=== PATIENT | female | born 1985 | race Caucasian/White ===

== ENCOUNTER 2016-06-15 08:35 | Emergency (ER) | payer BC, OTHER ==
[~2016-06-15] VITALS: Ht 157.5 cm; Wt 65.0 kg
[2016-06-15 08:38] VITALS: BP 138/88; PULSE 103; RESP 15; TEMP 98.3; O2SAT 97
--- NOTE | 2016-06-15 09:33 | PD ---
HPI Chief Complaint: Cold / Flu Symptoms Time Seen by Provider: 09:23 Travel History International Travel<30 days: No Contact w/Intl Traveler<30days: No Traveled to known affect area: No History of Present Illness HPI She complains of runny nose and congestion and cough and sore throat. Symptoms have been going on for 2 days. Severity is mild. No fever PFSH Past Medical History Asthma: Yes (ASTHMATIC BRONCHITIS) Cardiovascular Problems: No Genitourinary: No Musculoskeletal: No Neurologic: No Reproductive: No Respiratory: Yes ?: Not Social History Alcohol Use: Yes Tobacco Use: Yes Substance Use: Yes Allergies-Medications (Allergen,Severity, Reaction): Coded Allergies: No Known Allergies (Verified , 06/15/16) Reported Meds & Prescriptions Reported Meds & Active Scripts Active No Active Prescriptions or Reported Medications Review of Systems HENT: Positive: Sore Throat, No: Lightheadedness Cardiovascular: No: Chest Pain or Discomfort Respiratory: Positive: Cough Physical Exam Narrative RESPIRATORY: Respiratory effort unlabored, no retractions or use of accessory muscles. Breath sounds are clear and symmetric. SKIN: Inspection shows no rash or ulcers. Palpation shows no induration or nodules. TMs and throat clear Data Data Last Documented VS Vital Signs Date Time Temp Pulse Resp B/P Pulse Ox O2 Delivery O2 Flow Rate FiO2 06/15/16 08:38 98.3 103 15 138/88 97 MDM Medical Decision Making Medical Screen Exam Complete: Yes Emergency Medical Condition: Yes Medical Record Reviewed: Yes Differential Diagnosis Bronchitis, URI, flu syndrome Narrative Course I have reviewed the patient's electronic medical record. Presentation most consistent with acute viral URI Supportive care discussed No indication for antibiotics Diagnosis Primary Impression: Viral upper respiratory tract infection Additional Instructions: The patient was advised to follow up with their physician and return if they worsen. Med/Other Pt SpecificInfo: Other Scripts No Active Prescriptions or Reported Meds Disposition: 01 DISCHARGE HOME Condition: Stable Humberto Marti MD Jun 15, 2016 09:33
== END 2016-06-15 09:55 | disposition home or self-care (01) ==
LOC: NEPB 08:35
DX: J06.9 Acute upper respiratory infection, unspecified (principal); B97.89 Other viral agents as the cause of diseases classified elsewhere; R05 Cough; Z72.0 Tobacco use; Z87.09 Personal history of other diseases of the respiratory system
CPT/HCPCS: 99283

== ENCOUNTER 2016-07-31 20:41 | Emergency (ER) | payer SELFPAY ==
[2016-07-31 20:48] VITALS: BP 124/65; PULSE 84; RESP 16; TEMP 98.2; O2SAT 98
[2016-07-31] MEDS ORDERED: ALBU6.7H INH (20:51)
[2016-07-31] MEDS ORDERED: PRED-503 PO (20:51)
[2016-07-31] MEDS ORDERED: predniSONE 20 MG TAB PO ONE (21:00)
[2016-07-31] MEDS ORDERED: RESP: ALBUTEROL 2.5 MG/IPRATROPIUM 0.5 MG NEB (SCH) INH ONE (21:00)
--- NOTE | 2016-07-31 21:00 | PD ---
HPI Chief Complaint: ENT Complaint Time Seen by Provider: 20:52 Travel History International Travel<30 days: No Contact w/Intl Traveler<30days: No Traveled to known affect area: No History of Present Illness HPI 30-year-old white female presents to emergency Department with complaints of shortness of breath or wheezing. She has a history of asthma and anxiety. She had sat the [facility] [employer] for alcohol detox. She admits to congestion, cough, pleuritic chest wall pain. She does continue to smoke. History of asthma and has not had her albuterol inhaler. No fever chills. No sputum production. No nausea vomiting. No abdominal pain or diarrhea. No ear symptoms. PFSH Past Medical History Narrative Medical aSTHMA, ALCOHOL ABUSE Asthma: Yes (ASTHMATIC BRONCHITIS) Cardiovascular Problems: No Genitourinary: No Musculoskeletal: No Neurologic: No Reproductive: No Respiratory: Yes Social History Alcohol Use: No (sober 3 months) Tobacco Use: Yes Substance Use: No (sober 3 months) Allergies-Medications (Allergen,Severity, Reaction): Coded Allergies: No Known Allergies (Verified , 07/31/16) Reported Meds & Prescriptions Reported Meds & Active Scripts Active No Active Prescriptions or Reported Medications Review of Systems Except as stated in HPI: all other systems reviewed are Neg Physical Exam Narrative GENERAL: Well-developed, well-nourished in no acute distress. Nontoxic appearing. HEAD: Normocephalic, atraumatic. EYES: Pupils equal round and reactive. Extraocular motions intact. No scleral icterus. No injection or drainage. ENT: TMs clear without erythema. The external auditory canals clear. Nose: clear . Posterior pharynx is pink and moist. No tonsillar edema or exudate. Uvula midline. Airway patent. NECK: Trachea midline.Supple, nontender, moves head freely. No central bony tenderness or spasm. CARDIOVASCULAR: Regular rate and rhythm without murmurs, gallops, or rubs. RESPIRATORY: Few x-ray wheeze. No Rales or rhonchi. GASTROINTESTINAL: Abdomen soft, non-tender, nondistended. No hepato-splenomegaly , or palpable masses. No guarding. EXTREMITIES: No clubbing, cyanosis, or edema. No joint tenderness, effusion, or edema noted. BACK: Nontender without deformity or crepitance. No flank tenderness. Data Data Last Documented VS Vital Signs Date Time Temp Pulse Resp B/P Pulse Ox O2 Delivery O2 Flow Rate FiO2 07/31/16 20:48 98.2 84 16 124/65 98 Orders Prednisone (Deltasone) (07/31/16 21:00) Duoneb X 1 Single Dose (07/31/16 21:00) [facility] Medical Decision Making Medical Screen Exam Complete: Yes Emergency Medical Condition: Yes Medical Record Reviewed: Yes Differential Diagnosis Differential diagnoses: Asthma exacerbation, URI, bronchitis Narrative Course Patient's given 80 mg of prednisone by mouth and 1 DuoNeb. Patient's lungs are clear. She stable for discharge. This is acute exacerbation of asthma Diagnosis Primary Impression: Acute asthma exacerbation Qualified Code: J45.21 - Mild intermittent asthma with acute exacerbation Patient Instructions: General Instructions Additional Instructions: Rest. Increase fluids. Stop smoking. prednisone, and albuterol. Followup with your Dr. in one week. Return to the ER for any problems. Med/Other Pt SpecificInfo: Prescription(s) given Scripts Albuterol 6.7 GM Inh (Proventil Hfa 6.7 GM Inh)90 Mcg/Act Aer2 Puff INH Q4-6H PRN (SHORTNESS OF BREATH) #1 INHALER Prov:Glenn Garcia MD 07/31/16 Prednisone (Deltasone)20 Mg Tab20 Mg PO TID #15 TAB Prov:Glenn Garcia MD 07/31/16 Disposition: 01 DISCHARGE HOME Condition: Stable Kem Shaikh Jul 31, 2016 21:00
== END 2016-07-31 21:29 | disposition home or self-care (01) ==
LOC: NEPB 20:41
DX: J45.21 Mild intermittent asthma with (acute) exacerbation (principal); F17.210 Nicotine dependence, cigarettes, uncomplicated
CPT/HCPCS: 94664; 99283; J7512

== ENCOUNTER 2016-11-13 17:47 | Inpatient (IN) | payer OTHER ==
[~2016-11-13] VITALS: Ht 157.5 cm; Wt 60.0 kg
[~2016-11-13 17:47] MED LIST: ALBU6.7H INH; PRED-503 PO
[2016-11-13 17:49] VITALS: BP 134/73; PULSE 118; RESP 20; TEMP 100.4; O2SAT 93
--- NOTE | 2016-11-13 17:54 | PD ---
Physical Exam Date Seen by Provider: Nov 13, 2016 Time Seen by Provider: 17:51 Data Data Last Documented VS Vital Signs Date Time Temp Pulse Resp B/P Pulse Ox O2 Delivery O2 Flow Rate FiO2 11/13/16 17:49 100.4 118 20 134/73 93 Room Air MDM Supervised Visit with JESSE: No Narrative Course 31 YO F with complaint of CP since yesterday morning, fevers since last night. Pain described as under the left breast, right shoulder and middle of the back. +SOB. + NV Vitals reviewed. Patient seen in triage, awaiting priority bed placement. Dotty De Nov 13, 2016 17:54
[2016-11-13] MEDS ORDERED: SODIUM CHLOR 0.9% 1000 ML INJ 800 ML IV ONE (18:16)
[2016-11-13] MEDS ORDERED: SODIUM CHLOR 0.9% 1000 ML INJ 1,000 ML IV ONE (18:16)
[2016-11-13] MEDS ORDERED: VANCOMYCIN INJ 900 MG in SODIUM CHLOR 0.9% 250 ML INJ 250 ML IV ONE (18:30)
--- NOTE | 2016-11-13 18:42 | RADRPT ---
EXAM DATE/TIME: 11/13/2016 18:30 [facility] COMPARISON: No previous studies available for comparison. INDICATIONS : Chest pain. MEDICAL HISTORY : None. SURGICAL HISTORY : None. ENCOUNTER: Initial ACUITY: 1 day PAIN SCORE: 0/10 LOCATION: Bilateral chest FINDINGS: There is consolidation at the left base silhouette the left heart border and the left hemidiaphragm. The right lung is clear. CONCLUSION: Left lower lobe consolidation. Some degree of effusion cannot be excluded. Raj Carrasco MD on November 13, 2016 at 18:39 Board Certified Radiologist. This report was verified electronically.
--- NOTE | 2016-11-13 18:50 | PD ---
HPI Chief Complaint: Chest Pain Time Seen by Provider: 18:06 Travel History International Travel<30 days: No Contact w/Intl Traveler<30days: No Traveled to known affect area: No History of Present Illness HPI This is a 31-year-old female who has a history of IV drug use who presents to the emergency department with 2 days of severe chest discomfort in the center of her chest, worse when she lays flat, constant, severe today associated with shortness of breath. She also has pain in her upper back. She's had a fever to 104 yesterday. She says she hasn't used IV drugs in one month but today she used IV Dilaudid because she thought that she might be and withdrawals. When that didn't work she came to the emergency department. [facility] Past Medical History Asthma: Yes (ASTHMATIC BRONCHITIS) Cardiovascular Problems: No Genitourinary: No Musculoskeletal: No Neurologic: No Reproductive: No Respiratory: Yes ?: Not LMP: OCTOBER 2016 Social History Alcohol Use: No (sober 3 months) Tobacco Use: Yes (ppd) Substance Use: No (sober 3 months) Allergies-Medications (Allergen,Severity, Reaction): Coded Allergies: No Known Allergies (Verified , 11/13/16) Reported Meds & Prescriptions Reported Meds & Active Scripts Active Proventil Hfa 6.7 GM Inh (Albuterol Sulfate) 90 Mcg/Act Aer 2 Puff INH Q4-6H PRN Review of Systems Except as stated in HPI: all other systems reviewed are Neg Physical Exam Narrative GENERAL: Ill-appearing SKIN: Track garcia along the bilateral upper extremities and left neck. HEAD: Atraumatic. Normocephalic. EYES: Pupils equal and round. No injection or drainage. ENT: Dry mucous membranes. NECK: Trachea midline. CARDIOVASCULAR: Tachycardic, 2/6 systolic murmur. RESPIRATORY: Tachypneic, clear to auscultation bilaterally. GASTROINTESTINAL: Abdomen soft, non-tender, nondistended. MUSCULOSKELETAL: No obvious deformities. NEUROLOGICAL: Awake and alert. No obvious cranial nerve deficits. Moving all extremities. PSYCHIATRIC: Appropriate mood and affect; insight and judgment normal. Data Data Last Documented VS Vital Signs Date Time Temp Pulse Resp B/P Pulse Ox O2 Delivery O2 Flow Rate FiO2 11/13/16 17:49 100.4 118 20 134/73 93 Room Air Orders Electrocardiogram (11/13/16 ) Complete Blood Count With Diff (11/13/16 18:16) Comprehensive Metabolic Panel (11/13/16 18:16) Lactic Acid Sepsis Protocol (11/13/16 18:16) Urinalysis - C+S If Indicated (11/13/16 18:16) Blood Culture (11/13/16 18:16) Chest, Single Ap (11/13/16 18:16) Blood Glucose (11/13/16 18:16) Ecg Monitoring (11/13/16 18:16) Iv Access Insert/Monitor (11/13/16 18:16) Oximetry (11/13/16 18:16) Oxygen Administration (11/13/16 18:16) Sodium Chlor 0.9% 1000 Ml Inj (Ns 1000 M (11/13/16 18:16) Sodium Chlor 0.9% 1000 Ml Inj (Ns 1000 M (11/13/16 18:16) Ed Urine Pregnancytest Poc (11/13/16 18:16) Vancomycin Inj (Vancomycin Inj) (11/13/16 18:30) Vascular Access Team Consult/P PRN (11/13/16 18:43) Vascular Poc Ultrasound (11/13/16 ) MDM Medical Decision Making Medical Screen Exam Complete: Yes Emergency Medical Condition: Yes Interpretation(s) Temperature is 100.4, tachycardic, somewhat hypoxic Differential Diagnosis Endocarditis, pneumonia, discitis, osteomyelitis, epidural abscess Narrative Course This is a 31-year-old female who was a history of IV drug use who presents to the emergency department with fever, cough and chest pain. She was placed on a monitor and an IV was established. Cultures will be obtained. Labs will be obtained and patient was started on IV vancomycin. I suspect the patient has endocarditis. She does have an infiltrate on her chest x-ray. I'm also concerned about possible discitis or epidural abscess that she has pain in the upper back. Patient will require admission, IV antibiotics and likely MRI as an inpatient. Bee Fermin MD Nov 13, 2016 18:50
[2016-11-13] MEDS ORDERED: CEFEPIME INJ 2,000 MG in SODIUM CHLORIDE 0.9% INJ 100 ML IV ONE (19:00)
[2016-11-13 19:41] LABS: BLOOD, URINE NEG (NEG); GLUCOSE,URINE NEG (NEG); KETONE, URINE NEG (NEG); MUCUS URINE FEW /lpf (OCC); NITRITE,URINE NEG (NEG); PH, URINE 7.5 (5.0-8.5); SQUAMOUS EPITHELIAL CELL URINE 10 /hpf (0-5); URINE COLOR YELLOW (YELLW/STRAW)
[2016-11-13 19:42] LABS: COMMENT (UR) CATH-CULT NOT IND; CULTURE IF INDICATED CATH CULTURE NOT IND
[2016-11-13 19:44] LABS: AUTOMATED NEUTROPHIL # 11.4 TH/MM3 (1.8-7.7); BASOPHIL % 0.1 % (0.0-2.0); EOSINOPHIL % 0.1 % (0.0-4.0); HEMATOCRIT 34.6 % (35.0-46.0); HEMO FLAGS DIFF FINAL; LYMPHOCYTE # 1.7 TH/MM3 (1.0-4.8); MEAN CELL VOLUME 81.7 FL (80.0-100.0); MEAN CORPUSCULAR HEMOGLOBIN 27.5 PG (27.0-34.0); MEAN CORPUSCULAR HGB CONC 33.7 % (32.0-36.0); MONO % 6.8 % (0.0-8.0); PLATELET COUNT 221 TH/MM3 (150-450); RED BLOOD COUNT 4.24 MIL/MM3 (4.00-5.30)
[2016-11-13 19:59] LABS: ANION GAP 9 MEQ/L (5-15); AST (GOT) 53 U/L (15-37); BICARBONATE 26.2 MEQ/L (21.0-32.0); BLOOD UREA NITROGEN 12 MG/DL (7-18); CHLORIDE 96 MEQ/L (98-107); GLOMERULAR FILTRATION RATE 101 ML/MIN (>89); SODIUM (NA) 131 MEQ/L (136-145)
[2016-11-13 20:00] LABS: ALT (GPT) 52 U/L (10-53)
[2016-11-13 20:02] LABS: ALKALINE PHOSPHATASE 114 U/L (45-117); TOTAL BILIRUBIN ADULT 0.7 MG/DL (0.2-1.0)
[2016-11-13 20:25] VITALS: BP 123/66; PULSE 108; RESP 18; O2SAT 97
[2016-11-13 21:05] VITALS: BP 120/60; PULSE 102; RESP 20; O2SAT 100
[2016-11-13 21:10] VITALS: O2SAT 100
--- NOTE | 2016-11-13 21:45 | PD ---
Physical Exam Date Seen by Provider: Nov 13, 2016 Time Seen by Provider: 19:00 Narrative Patient signed out to me by Dr. Taylor at 7 PM. We were awaiting laboratory tests. Patient has a white count of 14,000. X-ray shows a left lower lobe infiltrate. The patient has a history of IVD drug use. She is artery started on antibiotics by Dr. Taylor. Data Data Last Documented VS Vital Signs Date Time Temp Pulse Resp B/P Pulse Ox O2 Delivery O2 Flow Rate FiO2 11/13/16 21:10 100 Nasal Cannula 2 11/13/16 21:05 102 20 120/60 11/13/16 17:49 100.4 Orders Electrocardiogram (11/13/16 ) Complete Blood Count With Diff (11/13/16 18:16) Comprehensive Metabolic Panel (11/13/16 18:16) Lactic Acid Sepsis Protocol (11/13/16 18:16) Urinalysis - C+S If Indicated (11/13/16 18:16) Blood Culture (11/13/16 18:16) Chest, Single Ap (11/13/16 18:16) Blood Glucose (11/13/16 18:16) Ecg Monitoring (11/13/16 18:16) Iv Access Insert/Monitor (11/13/16 18:16) Oximetry (11/13/16 18:16) Oxygen Administration (11/13/16 18:16) Sodium Chlor 0.9% 1000 Ml Inj (Ns 1000 M (11/13/16 18:16) Sodium Chlor 0.9% 1000 Ml Inj (Ns 1000 M (11/13/16 18:16) Ed Urine Pregnancytest Poc (11/13/16 18:16) Vancomycin Inj (Vancomycin Inj) (11/13/16 18:30) Vascular Access Team Consult/P PRN (11/13/16 18:43) Vascular Poc Ultrasound (11/13/16 ) Cefepime Inj (Maxipime Inj) (11/13/16 19:00) Troponin I (11/13/16 18:52) Ct Pulmonary Angiogram (11/13/16 19:54) Admit Order (Ed Use Only) (11/13/16 21:45) Labs Laboratory Tests Test 11/13/16 11/13/16 19:06 19:24 White Blood Count 14.0 TH/MM3 Red Blood Count 4.24 MIL/MM3 Hemoglobin 11.7 GM/DL Hematocrit 34.6 % Mean Corpuscular Volume 81.7 FL Mean Corpuscular Hemoglobin 27.5 PG Mean Corpuscular Hemoglobin 33.7 % Concent Red Cell Distribution Width 16.0 % Platelet Count 221 TH/MM3 Mean Platelet Volume 8.9 FL Neutrophils (%) (Auto) 81.0 % Lymphocytes (%) (Auto) 12.0 % Monocytes (%) (Auto) 6.8 % Eosinophils (%) (Auto) 0.1 % Basophils (%) (Auto) 0.1 % Neutrophils # (Auto) 11.4 TH/MM3 Lymphocytes # (Auto) 1.7 TH/MM3 Monocytes # (Auto) 1.0 TH/MM3 Eosinophils # (Auto) 0.0 TH/MM3 Basophils # (Auto) 0.0 TH/MM3 CBC Comment DIFF FINAL Differential Comment Sodium Level 131 MEQ/L Potassium Level 4.0 MEQ/L Chloride Level 96 MEQ/L Carbon Dioxide Level 26.2 MEQ/L Anion Gap 9 MEQ/L Blood Urea Nitrogen 12 MG/DL Creatinine 0.69 MG/DL Estimat Glomerular Filtration 101 ML/MIN Rate Random Glucose 101 MG/DL Lactic Acid Level 0.8 mmol/L Calcium Level 9.0 MG/DL Total Bilirubin 0.7 MG/DL Aspartate Amino Transf 53 U/L (AST/SGOT) Alanine Aminotransferase 52 U/L (ALT/SGPT) Alkaline Phosphatase 114 U/L Total Protein 8.2 GM/DL Albumin 3.3 GM/DL Urine Color YELLOW Urine Turbidity HAZY Urine pH 7.5 Urine Specific [place] 1.029 Urine Protein 100 mg/dL Urine Glucose (UA) NEG mg/dL Urine Ketones NEG mg/dL Urine Occult Blood NEG Urine Nitrite NEG Urine Bilirubin NEG Urine Urobilinogen LESS THAN 2.0 MG/DL Urine Leukocyte Esterase NEG Urine RBC 2 /hpf Urine WBC 4 /hpf Urine Squamous Epithelial 10 /hpf Cells Urine Amorphous Sediment RARE Urine Mucus FEW /lpf Microscopic Urinalysis Comment CATH-CULT NOT IND MDM Medical Record Reviewed: Yes Supervised Visit with JESSE: No Differential Diagnosis 31-year-old female history of IVD drug use, presents here with complaints of cough and pleuritic chest pain. The patient is left lower lobe pneumonia. White count is 14,000. She's been started on vancomycin and basophils 1. Cultures are pending at this time. The [facility]. There is a call out. Diagnosis Primary Impression: Pneumonia Additional Impressions: Leukocytosis history of IV drug use Tachycardia Admitting Information Admitting Physician Requests: Admit Abdullahi Ryan MD Nov 13, 2016 21:45
[2016-11-13] MEDS ORDERED: LACTULOSE SYRUP 20 GM/30 ML CUP PO PRN (22:00)
[2016-11-13] MEDS ORDERED: ONDANSETRON HCL 4 MG/2 ML VIAL IVP PRN (22:00)
[2016-11-13] MEDS ORDERED: Vancomycin Consult Pharmacy 1 EA OTHER SCH (22:00)
[2016-11-13] MEDS ORDERED: MAGNESIUM HYDROXIDE SUSP 30 ML CUP PO PRN (22:00)
[2016-11-13] MEDS ORDERED: BISACODYL 10 MG SUPP RECTAL PRN (22:00)
[2016-11-13] MEDS ORDERED: LORazepam 2 MG/ML VIAL IV PUSH PRN (22:00)
[2016-11-13] MEDS ORDERED: SENNOSIDES 8.6 MG TAB PO PRN (22:00)
[2016-11-13] MEDS ORDERED: ACETAMINOPHEN 325 MG TAB PO PRN (22:00)
--- NOTE | 2016-11-13 22:02 | HHI.HP ---
[facility] Primary Care Physician No Primary Care Physician Admission Diagnosis Pneumonia, leukocytosis, mild hyponatremia, iv drug abuse Diagnoses: (1) Sepsis Diagnosis: Principal (2) PNA (pneumonia) Diagnosis: Principal (3) IVDU (intravenous drug user) Diagnosis: Principal (4) Tobacco abuse Diagnosis: Principal Travel History International Travel<30 Days: No Contact w/Intl Traveler <30 Da: No Traveled to Known Affected Are: No History of Present Illness This is a 31-year-old female with a PMH of Asthma, IVDU and Tobacco Abuse who presents to the ER with complaints of SOB and fever of 104 x1 day. States she has been "clean" x3 months, however started using IV Dilaudid again yesterday because she thought she was having withdrawals. Denies cough or sick contacts. On arrival, BP 134/73, HR 118, O2 sat 93% on RA, Temp 100.4. WBC 14. Chemistry essentially unremarkable. UA negative. CXR with left lower lobe consolidation. CTA Pulm negative for PE, dense areas of consolidation left lingula and left lower lobe with mild left pleural effusion, minimal consolidation right base and right middle lobe. S/p Blood Culture, Vanc/ Cefepime in ER. Review of Systems Except as stated in HPI: all other systems reviewed are Neg ROS: 14 point review of systems otherwise negative. Past Family Social History Past Medical History PMH: Asthma, IVDU and Tobacco Abuse Past Surgical History PAST SURGICAL HISTORY: Back Surgery Allergies: Coded Allergies: No Known Allergies (Verified , 11/13/16) Family History PAST FAMILY HISTORY: Reviewed. No h/o DM or CAD Social History PAST SOCIAL HISTORY: H/o Alcohol, quit 3 months ago. Smokes 1ppd. H/o IVDU, quit 3 months ago, relapsed yesterday w/ IV Dilaudid. Physical Exam Vital Signs Vital Signs Date Time Temp Pulse Resp B/P Pulse Ox O2 Delivery O2 Flow Rate FiO2 11/13/16 21:10 100 Nasal Cannula 2 11/13/16 21:10 100 Nasal Cannula 2 11/13/16 21:05 102 20 120/60 100 Nasal Cannula 2 11/13/16 20:25 108 18 123/66 97 11/13/16 17:49 100.4 118 20 134/73 93 Room Air Physical Exam PE: GENERAL: Young white female in no acute distress. HEENT: PERRLA, EOMI. No scleral icterus or conjunctival pallor. No lid lag or facial droop. Dry mucous membranes. CARDIOVASCULAR: Regular rate and rhythm. No obvious murmurs to auscultation. No chest tenderness to palpation. RESPIRATORY: No obvious rhonchi or wheezing. Clear to auscultation. Breath sounds equal bilaterally. GASTROINTESTINAL: Abdomen soft, non-tender, nondistended. BS normal. MUSCULOSKELETAL: Extremities without clubbing, cyanosis, or edema. No obvious deformities. NEUROLOGICAL: Awake, alert and oriented x4. No focal neurologic deficits. Moving both upper and lower extremities spontaneously. Laboratory Laboratory Tests Test 11/13/16 11/13/16 19:06 19:24 White Blood Count 14.0 Red Blood Count 4.24 Hemoglobin 11.7 Hematocrit 34.6 Mean Corpuscular Volume 81.7 Mean Corpuscular Hemoglobin 27.5 Mean Corpuscular Hemoglobin 33.7 Concent Red Cell Distribution Width 16.0 Platelet Count 221 Mean Platelet Volume 8.9 Neutrophils (%) (Auto) 81.0 Lymphocytes (%) (Auto) 12.0 Monocytes (%) (Auto) 6.8 Eosinophils (%) (Auto) 0.1 Basophils (%) (Auto) 0.1 Neutrophils # (Auto) 11.4 Lymphocytes # (Auto) 1.7 Monocytes # (Auto) 1.0 Eosinophils # (Auto) 0.0 Basophils # (Auto) 0.0 CBC Comment DIFF FINAL Differential Comment Sodium Level 131 Potassium Level 4.0 Chloride Level 96 Carbon Dioxide Level 26.2 Anion Gap 9 Blood Urea Nitrogen 12 Creatinine 0.69 Estimat Glomerular Filtration 101 Rate Random Glucose 101 Lactic Acid Level 0.8 Calcium Level 9.0 Total Bilirubin 0.7 Aspartate Amino Transf 53 (AST/SGOT) Alanine Aminotransferase 52 (ALT/SGPT) Alkaline Phosphatase 114 Total Protein 8.2 Albumin 3.3 Urine Color YELLOW Urine Turbidity HAZY Urine pH 7.5 Urine Specific [place] 1.029 Urine Protein 100 Urine Glucose (UA) NEG Urine Ketones NEG Urine Occult Blood NEG Urine Nitrite NEG Urine Bilirubin NEG Urine Urobilinogen LESS THAN 2.0 Urine Leukocyte Esterase NEG Urine RBC 2 Urine WBC 4 Urine Squamous Epithelial 10 Cells Urine Amorphous Sediment RARE Urine Mucus FEW Microscopic Urinalysis Comment CATH-CULT NOT IND Date/Time Procedure Status Source Growth 11/13/16 19:10 Aerobic Blood Culture Received Blood Peripheral Pending 11/13/16 19:10 Anaerobic Blood Culture Received Blood Peripheral Pending Result Diagram: 11/13/16190511/13/161905 Assessment and Plan Problem List: (1) Sepsis ICD Code: A41.9 Status: Acute (2) PNA (pneumonia) ICD Code: J18.9 Status: Acute (3) IVDU (intravenous drug user) ICD Code: F19.90 Status: Acute (4) Tobacco abuse ICD Code: Z72.0 Status: Acute Assessment and Plan A/P: 1. Sepsis: Temp 100.4, HR 118, WBC 14, Source-PNA/? Endocarditis w/ h/o IVDU. S/p Blood Cultures, Vanc/Cefepime in ER. Follow up cultures, continue IV Abx. Check Echo to eval for possible endocarditis. IVF for hydration. 2. PNA: CXR w/ LLL PNA, CTA Pulm negative for PE, but multiple areas of consolidation LLL, Left lingula, RML, RLL, images reviewed by me. Follow up cultures, continue w/ IV Abx, DuoNeb prn. 3. IVDU: H/o IVDU, clean x3 months, relapsed w/ IV Dilaudid yesterday. Ativan prn for withdrawal/agitation. 4. Tobacco Abuse: Pt counselled. Ativan/NicoDerm prn if needed. 5. DVT Prophylaxis: SCD/Teds. 6. Social work for d/c planning as needed. 7. Case discussed w/ ER physician at length. Physician Certification 2 Midnight Certification Type: Admission for Inpatient Services Order for Inpatient Services The services are ordered in accordance with Medicare regulations or non- Medicare payer requirements, as applicable. In the case of services not specified as inpatient-only, they are appropriately provided as inpatient services in accordance with the 2-midnight benchmark. Estimated LOS (days): 2 days is the estimated time the patient will need to remain in the hospital, assuming treatment plan goals are met and no additional complications. Post-Hospital Plan: Not yet determined Chela Levine MD Nov 13, 2016 22:02
[2016-11-13] MEDS ORDERED: IOHEXOL 350 MG/ML 10 ML VIAL (for RAD DIAG) IV ONE (22:04)
--- NOTE | 2016-11-13 22:20 | RADRPT ---
EXAM DATE/TIME: 11/13/2016 22:02 [facility] COMPARISON: No previous studies available for comparison. INDICATIONS : Left sided chest pain radiating to left shoulder with shortness of breath with fever. IV CONTRAST: 75 cc Omnipaque 350 (iohexol) IV RADIATION DOSE: 23.18 CTDIvol (mGy) MEDICAL HISTORY : Substance abuse. SURGICAL HISTORY : Back surgery. ENCOUNTER: Initial ACUITY: 1 day PAIN SCALE: 6/10 LOCATION: Left chest TECHNIQUE: Volumetric scanning of the chest was performed using a pulmonary embolism protocol MIP images were re constructed. Using automated exposure control and adjustment of the mA and/or kV according to patien t size, radiation dose was kept as low as reasonably achievable to obtain optimal diagnostic quality images. DICOM format image data is available electronically for review and comparison. FINDINGS: PULMONARY ARTERIES: No filling defects are seen in the pulmonary arteries through the segmental level. LUNGS: There is emphysematous change seen throughout. There is consolidation of the left lingula and left lo wer lobe. There is minimal atelectasis or consolidation at the right lower lobe and right middle lobe . PLEURAE: There is a mild left pleural effusion. MEDIASTINUM: There are prominent lymph nodes in the AP window, subcarinal and hilar regions bilaterally. MUSCULOSKELETAL: Within normal limits for patient age. MISCELLANEOUS: The visualized upper abdominal organs demonstrate no acute abnormality. CONCLUSION: 1. No pulmonary embolus. 2. Dense areas of consolidation the left lingula and left lower lobe with a mild left pleural effusio n. There are minimal areas of consolidation or atelectasis at the right base and right middle lobe. 3. Nonspecific prominent lymph nodes in the mediastinum and hilar regions. 4. Emphysematous change. Raj Carrasco MD on November 13, 2016 at 22:15 Board Certified Radiologist. This report was verified electronically.
[2016-11-13] MEDS: SODIUM CHLOR 0.9% 1000 ML INJ 1,000 ML IV SCH (23:13)
[2016-11-14] VITALS (8 sets, daily range): BP systolic 102–127; BP diastolic 59–73; PULSE 58–109; RESP 17–20; TEMP 98.3–103; O2SAT 95–100
[2016-11-14] MEDS: SODIUM CHLOR 0.9% 1000 ML INJ 1,000 ML IV SCH ×2 (07:52→17:53)
[2016-11-14] MEDS: DOCUSATE SODIUM 50 MG/SENNA 8.6 MG TAB PO SCH ×2 (07:57→20:29)
[2016-11-14] MEDS: SODIUM CHLORIDE 0.9% FLUSH 10 ML FLUSH IV FLUSH SCH ×2 (07:58→20:29)
[2016-11-14] MEDS ORDERED: VANCOMYCIN 1,000 MG/NS 250 ML IV SCH ×2 (08:00)
[2016-11-14] MEDS ORDERED: CEFEPIME INJ 2,000 MG in SODIUM CHLORIDE 0.9% INJ 100 ML IV SCH (09:00)
--- NOTE | 2016-11-14 11:02 | HHI.PR ---
Subjective Remarks Patient reports severe pain in the thoracic region. She reports this is new pain for her. Persistent high fever. Blood cultures 08/16 pos for gram pos cocci. Objective Vitals Vital Signs Date Time Temp Pulse Resp B/P Pulse Ox O2 Delivery O2 Flow Rate FiO2 11/14/16 08:00 103.0 97 20 127/73 96 11/14/16 07:30 98 11/14/16 04:24 99.8 94 18 118/72 96 11/14/16 00:30 98.9 109 18 102/72 97 11/13/16 21:10 100 Nasal Cannula 2 11/13/16 21:10 100 Nasal Cannula 2 11/13/16 21:05 102 20 120/60 100 Nasal Cannula 2 11/13/16 20:25 108 18 123/66 97 11/13/16 17:49 100.4 118 20 134/73 93 Room Air I/O 11/13/16 11/13/16 11/13/16 11/14/16 11/14/16 11/14/16 07:00 15:00 23:00 07:00 15:00 23:00 Intake Total 120 ml Balance 120 ml Intake Oral 120 ml # Voids 2 1 # Bowel Movements 0 Result Diagram: 11/13/166 11/13/161905 Imaging Last Impressions CT Angiography 11/13/161953 Signed Impressions: Service Date/Time: Sunday, November 13, 2016 22:02 - CONCLUSION: 1. No pulmonary embolus. 2. Dense areas of consolidation the left lingula and left lower lobe with a mild left pleural effusion. There are minimal areas of consolidation or atelectasis at the right base and right middle lobe. 3. Nonspecific prominent lymph nodes in the mediastinum and hilar regions. 4. Emphysematous change. Raj Carrasco MD Chest X-Ray 11/13/161815 Signed Impressions: Service Date/Time: Sunday, November 13, 2016 18:30 - CONCLUSION: Left lower lobe consolidation. Some degree of effusion cannot be excluded. Raj Carrasco MD Objective Remarks GENERAL: Patient appears older than stated age. She states upper back pain is worse with laying down. CARDIOVASCULAR: Normal rate and regular rhythm. There is a soft 2/6 CHRISTIANO murmur best heard in the tricuspid area. RESPIRATORY: Shallow breathing. Diminished breath sounds at the bases bilaterally, otherwise clear to auscultation bilaterally. GASTROINTESTINAL: Abdomen soft, non-tender, non-distended. Normal active bowel sounds MUSCULOSKELETAL: Extremities without cyanosis, or edema. NEURO: Alert & Oriented x4 to person, place, time, situation. Moves all ext x4 PSYCH: Appropriate mood and affect. A/P Problem List: (1) Sepsis ICD Code: A41.9 Status: Acute (2) PNA (pneumonia) ICD Code: J18.9 Status: Acute (3) IVDU (intravenous drug user) ICD Code: F19.90 Status: Acute (4) Tobacco abuse ICD Code: Z72.0 Status: Acute (5) Gram-positive cocci bacteremia ICD Code: R78.81 Status: Acute Assessment and Plan 31-year-old female with history of IV drug abuse admitted with sepsis. Patient found to have gram-positive bacteremia. Need to rule out bacterial endocarditis. Sepsis secondary to bacteremia: Need to rule out endocarditis Continue vancomycin and cefepime. Consult infectious disease 2-D echocardiogram ordered PNA: Chest CT shows multiple areas of consolidation LLL, Left lingula, RML, RLL. Could be septic emboli. -Antibiotics as above. Infectious diseases consulted supportive care with supplemental oxygen as needed Back pain: Patient reports pain out of proportion involving the thoracic spine. Given current bacteremia and IV drug use. Need to rule out infectious process such as an epidural abscess or discitis. Obtain MRI of the thoracic spine. Careful with pain medication given her history. Would avoid IV narcotics. Continue oxycodone. Add Toradol IV as needed for breakthrough pain. IVDU: Patient reports she has been using IV Dilaudid intermittently for the past month. Most recently she can recall was a couple of weeks ago, then yesterday. - Patient thoroughly counseled on the detrimental effects of IV drugs on her health. She expressed desire to quit. She will be given information regarding rehabilitation Tobacco Abuse: Pt counselled. Ativan/NicoDerm prn if needed. DVT Prophylaxis: SCD/Teds. Discharge Planning Continue inpatient care. Sammy Berkowitz MD Nov 14, 2016 11:02
--- NOTE | 2016-11-14 14:16 | EKG ---
Date Performed: 11/13/2016 Time Performed: 18:03:45 PTAGE: 31 years EKG: SINUS TACHYCARDIA NONSPECIFIC T-WAVE ABNORMALITY ABNORMAL RHYTHM ECG NO PREVIOUS TRACING DOCTOR: Anurag Liu Interpretating Date/Time 11/14/2016 14:14:12
[2016-11-14] MEDS: KETOROLAC TROMETHAMINE 30 MG/ML (IVP) VIAL IV PUSH PRN ×2 (17:27→23:27)
[2016-11-14] MEDS: OXACILLIN INJ 2 GM in SODIUM CHLORIDE 0.9% INJ 100 ML IV SCH ×2 (17:51→20:29)
--- NOTE | 2016-11-14 19:00 | MB ---
cc: VINAY MEDINA MD,LIZETH Jim MD DATE OF CONSULTATION: 11/14/[address] Berkowitz. REASON FOR CONSULTATION: High-grade bacteremia, sepsis, IVDU. HISTORY OF PRESENT ILLNESS This is a 31-year-old white female who does IV drugs. The patient presented to the emergency department with fever or chills, and chest pain. She notes that the chest pain was getting worse when she would lay flat and she presented to the emergency department with severe chest pain with shortness of breath and also pain in the upper back. The patient reportedly used drugs over the past few days. She reportedly felt she was in withdrawal and used IV Dilaudid which was injected into her neck. She reports that she has been cold turkey trying to quit off and on. She had a temperature of 103 degrees this morning and her white count is elevated at 14.0 yesterday evening. In the emergency department she had a temperature of 100.4 degrees and heart rate of 118. CT scan of the chest showed tense areas of consolidation at the left lingula and left lower lobe, and mild left pleural effusion. There is also minimal areas of consolidation or atelectasis at the right base and the right middle lobe. The patient is sitting upright in bed, laying slightly forward. She states that whenever she tried to lean back she gets pain in her chest. She denies headaches. She has no nausea or vomiting. The patient states that approximately 1 week ago she fell off her bed flat onto the back and her boyfriend who was in bed with her fell right on top of her and she felt some pain in the back and she had some back pain since then. Culture of the blood was taken and all four bottles have gram-positive cocci with one identified as staph aureus, methicillin-sensitive by [employer], nucleic acid test. PAST MEDICAL HISTORY: Asthma. Tobacco abuse. IV drug abuse. History of back surgery. ALLERGIES NO KNOWN DRUG ALLERGIES. MEDICATIONS 1. Cefepime. 2. Vancomycin 3. Ioana-Colace. 4. Oxycodone 5. Lactulose. SOCIAL HISTORY The patient smokes about a half to one pack of cigarettes a day. Denies alcohol use. Positive IV drug use. FAMILY HISTORY Noncontributory. REVIEW OF SYSTEMS Significant for fever, chills, back pain, chest pain. PHYSICAL EXAMINATION This is a slender, well-developed female in no acute distress. She is awake, alert and oriented. Vital signs: Temperature of 100.8, BP 111/69, respirations 20, heart rate 93. HEENT: Head atraumatic. Extraocular movements grossly intact, pupils reactive to light. No icterus. Oropharynx, no lesions. No thrush. Neck: Supple without adenopathy. The left neck has an area of firmness over the jugular vein area but no palpable cord. Lungs: Decreased breath sounds. Heart: 3/6 systolic murmur at the left sternal border. Abdomen: Bowel sounds present, soft, nontender. Rectal: Not performed. Extremities: No clubbing, cyanosis or edema. No splinter hemorrhages. No embolic lesions. Skin: No rash. Neuro: Nonfocal. Psych: The patient is calm and cooperative. LABORATORY DATA: WBC 14.0, platelet count 221, 81% neutrophils, hemoglobin 11.7, creatinine 0.69, BUN 12, estimated GFR 101, AST 53, ALT 52, sodium 132. IMPRESSION 1. Bacteremia due to staph aureus in a patient who is an IV drug user. 2. Rule out endocarditis. 3. Pneumonia. The patient has no cough or sputum production and very likely is related to the bacteremia. The patient likely has embolic phenomenon from endocarditis. RECOMMENDATIONS 1. Begin oxacillin. 2. Discontinue cefepime. 3. Discontinue vancomycin. 4. Monitor blood cultures identity and sensitivity. 5. Obtain repeat blood cultures tomorrow. 6. Follow 2-D echocardiogram. 7. Obtain sputum culture if the patient begins to expectorate sputum. Thank you for the consultation. The patient's progress will be followed and further recommendations will be given upon follow up. Vinay Medina MD FD/BRIAN /3:18 PM /6:46 PM SHAISTA
[2016-11-15] VITALS (7 sets, daily range): BP systolic 116–139; BP diastolic 69–93; PULSE 77–90; RESP 17–18; TEMP 97.5–98.8; O2SAT 95–97
[2016-11-15] MEDS: OXACILLIN INJ 2 GM in SODIUM CHLORIDE 0.9% INJ 100 ML IV SCH ×6 (01:41→20:35)
[2016-11-15] MEDS: SODIUM CHLOR 0.9% 1000 ML INJ 1,000 ML IV SCH ×2 (04:00→14:00)
[2016-11-15] MEDS ORDERED: PHARMACY ORDERED LAB ONE (07:45)
[2016-11-15] MEDS: SODIUM CHLORIDE 0.9% FLUSH 10 ML FLUSH IV FLUSH SCH ×2 (09:00→20:36)
--- NOTE | 2016-11-15 10:23 | HHI.PR ---
Subjective Remarks Patient reports she is doing much better today. Her back pain is mostly resolved. Overall feeling much better. She is able to lay flat without any problems. Objective Vitals Vital Signs Date Time Temp Pulse Resp B/P Pulse Ox O2 Delivery O2 Flow Rate FiO2 11/15/16 08:00 97.5 83 18 134/78 95 11/15/16 04:35 98.3 79 17 119/72 97 11/15/16 00:40 98.7 81 17 116/69 96 11/14/16 20:35 98.3 82 17 118/71 97 11/14/16 19:27 79 11/14/16 16:00 101.0 100 20 120/72 95 11/14/16 12:00 100.8 93 20 111/69 96 I/O 11/14/16 11/14/16 11/14/16 11/15/16 11/15/16 11/15/16 07:00 15:00 23:00 07:00 15:00 23:00 Intake Total 120 ml 573 ml 890 ml 960 ml Balance 120 ml 573 ml 890 ml 960 ml Intake Oral 120 ml 240 ml 240 ml IV Total 573 ml 650 ml 720 ml # Voids 2 1 5 3 # Bowel Movements 0 0 0 Result Diagram: 11/13/16190511/13/161905 Objective Remarks GENERAL: Patient appears older than stated age. CARDIOVASCULAR: Normal rate and regular rhythm. There is a soft 2/6 CHRISTIANO murmur best heard in the tricuspid area. RESPIRATORY: Diminished breath sounds at the bases bilaterally, otherwise clear to auscultation bilaterally. GASTROINTESTINAL: Abdomen soft, non-tender, non-distended. Normal active bowel sounds MUSCULOSKELETAL: Extremities without cyanosis, or edema. NEURO: Alert & Oriented x4 to person, place, time, situation. Moves all ext x4 PSYCH: Appropriate mood and affect. A/P Problem List: (1) Sepsis ICD Code: A41.9 Status: Acute (2) PNA (pneumonia) ICD Code: J18.9 Status: Acute (3) IVDU (intravenous drug user) ICD Code: F19.90 Status: Acute (4) Tobacco abuse ICD Code: Z72.0 Status: Acute (5) Gram-positive cocci bacteremia ICD Code: R78.81 Status: Acute Assessment and Plan 31-year-old female with history of IV drug abuse admitted with sepsis. Patient found to have gram-positive bacteremia. Need to rule out bacterial endocarditis. Sepsis secondary to bacteremia: Need to rule out endocarditis Infectious disease following. Discontinue vancomycin and cefepime, patient was started on oxacillin. 2-D echocardiogram ordered PNA: Chest CT shows multiple areas of consolidation LLL, Left lingula, RML, RLL. Could be septic emboli. -Antibiotics as above. Infectious diseases following supportive care with supplemental oxygen as needed Back pain: Yesterday the patient reported pain out of proportion involving the thoracic spine. However today her pain significantly improved, will cancel MRI. Careful with pain medication given her history. Would avoid IV narcotics. Continue oxycodone. Toradol IV as needed for breakthrough pain. IVDU: Patient reports she has been using IV Dilaudid intermittently for the past month. Most recently she can recall was a couple of weeks ago, then the day prior to admission. - Patient thoroughly counseled on the detrimental effects of IV drugs on her health. She expressed desire to quit. Tobacco Abuse: Pt counselled. Ativan/NicoDerm prn if needed. DVT Prophylaxis: SCD/Teds. Discharge Planning Continue inpatient care. Sammy Berkowitz MD Nov 15, 2016 10:23
[2016-11-15] MEDS: DOCUSATE SODIUM 50 MG/SENNA 8.6 MG TAB PO SCH ×2 (10:53→20:36)
[2016-11-15] MEDS: KETOROLAC TROMETHAMINE 30 MG/ML (IVP) VIAL IV PUSH PRN (18:14)
[2016-11-16] VITALS (8 sets, daily range): BP systolic 115–140; BP diastolic 66–83; PULSE 75–114; RESP 16–20; TEMP 97.8–100.5; O2SAT 92–95
[2016-11-16] MEDS: OXACILLIN INJ 2 GM in SODIUM CHLORIDE 0.9% INJ 100 ML IV SCH ×6 (00:23→21:41)
[2016-11-16] MEDS: DOCUSATE SODIUM 50 MG/SENNA 8.6 MG TAB PO SCH ×2 (09:00→21:00)
[2016-11-16] MEDS: SODIUM CHLORIDE 0.9% FLUSH 10 ML FLUSH IV FLUSH SCH ×2 (09:00→21:41)
[2016-11-16] MEDS: SODIUM CHLOR 0.9% 1000 ML INJ 1,000 ML IV SCH ×3 (10:00→21:42)
--- NOTE | 2016-11-16 10:57 | HHI.PR ---
Subjective Remarks Patient reports she is feeling okay. No fevers or chills. Still having some pleuritic pain with deep breathing. Objective Vitals Vital Signs Date Time Temp Pulse Resp B/P Pulse Ox O2 Delivery O2 Flow Rate FiO2 11/16/16 08:00 98.4 90 20 124/74 94 11/16/16 04:30 97.8 88 17 119/66 94 11/16/16 00:39 98.3 92 18 115/68 95 11/15/16 20:21 98.6 84 18 139/93 96 11/15/16 20:03 90 11/15/16 16:13 16 11/15/16 16:00 98.8 77 18 133/77 96 11/15/16 12:00 98.1 85 17 129/79 95 I/O 11/15/16 11/15/16 11/15/16 11/16/16 11/16/16 11/16/16 07:00 15:00 23:00 07:00 15:00 23:00 Intake Total 960 ml 840 ml 480 ml 360 ml Balance 960 ml 840 ml 480 ml 360 ml Intake Oral 240 ml 840 ml 480 ml 360 ml IV Total 720 ml # Voids 3 6 3 4 # Bowel Movements 0 4 0 0 Result Diagram: 11/13/16190511/13/161905 Objective Remarks GENERAL: Patient appears older than stated age. CARDIOVASCULAR: Normal rate and regular rhythm. There is a soft 2/6 CHRISTIANO murmur best heard in the tricuspid area. RESPIRATORY: Diminished breath sounds at the bases bilaterally, otherwise clear to auscultation bilaterally. GASTROINTESTINAL: Abdomen soft, non-tender, non-distended. Normal active bowel sounds MUSCULOSKELETAL: Extremities without cyanosis, or edema. NEURO: Alert & Oriented x4 to person, place, time, situation. Moves all ext x4 PSYCH: Appropriate mood and affect. A/P Problem List: (1) Sepsis ICD Code: A41.9 Status: Acute (2) PNA (pneumonia) ICD Code: J18.9 Status: Acute (3) IVDU (intravenous drug user) ICD Code: F19.90 Status: Acute (4) Tobacco abuse ICD Code: Z72.0 Status: Acute (5) Gram-positive cocci bacteremia ICD Code: R78.81 Status: Acute Assessment and Plan 31-year-old female with history of IV drug abuse admitted with sepsis. Patient found to have staph aureus bacteremia. Need to rule out bacterial endocarditis. Sepsis secondary to bacteremia: Need to rule out endocarditis Infectious disease following. Discontinue vancomycin and cefepime, patient was started on oxacillin. 2-D echocardiogram ordered. Discussed with echo vasc tech today. Will be done today. Repeat blood cultures PNA: Chest CT shows multiple areas of consolidation LLL, Left lingula, RML, RLL. Could be septic emboli. -Antibiotics as above. Infectious diseases following supportive care with supplemental oxygen as needed Incentive spirometer ordered. Back pain: Careful with pain medication given her history. Would avoid IV narcotics. Continue oxycodone. Toradol IV as needed for breakthrough pain. IVDU: Patient reports she has been using IV Dilaudid intermittently for the past month. Most recently she can recall was a couple of weeks ago, then the day prior to admission. - Patient thoroughly counseled on the detrimental effects of IV drugs on her health. She expressed desire to quit. Tobacco Abuse: Pt counselled. Ativan/NicoDerm prn if needed. DVT Prophylaxis: SCD/Teds. Discharge Planning Continue inpatient care. Sammy Berkowitz MD Nov 16, 2016 10:57
[2016-11-16 11:49] LABS: HEMATOCRIT 27.7 % (35.0-46.0); MEAN CELL VOLUME 82.1 FL (80.0-100.0); MEAN CORPUSCULAR HEMOGLOBIN 26.9 PG (27.0-34.0); MEAN CORPUSCULAR HGB CONC 32.8 % (32.0-36.0); PLATELET COUNT 222 TH/MM3 (150-450); RED BLOOD COUNT 3.38 MIL/MM3 (4.00-5.30); RED CELL DISTRIBUTION WIDTH 16.3 % (11.6-17.2); REVIEW FLAG FINAL
[2016-11-16 11:56] LABS: BICARBONATE 23.2 MEQ/L (21.0-32.0); POTASSIUM 3.8 MEQ/L (3.5-5.1)
--- NOTE | 2016-11-16 14:59 | HHI.IDPN ---
Note Infectious Disease Note Patient still has left pleuritic chest pain. Afebrile. No cough. Denies chills. This is a 31-year-old white female who does IV drugs. The patient presented to the emergency department with fever or chills, and chest pain. She notes that the chest pain was getting worse when she would lay flat and she presented to the emergency department with severe chest pain with shortness of breath and also pain in the upper back. PAST MEDICAL HISTORY: Asthma. Tobacco abuse. IV drug abuse. History of back surgery. ALLERGIES NO KNOWN DRUG ALLERGIES. MEDICATIONS Oxacillin. SOCIAL HISTORY The patient smokes about a half to one pack of cigarettes a day. Denies alcohol use. Positive IV drug use. FAMILY HISTORY Noncontributory. OBJECTIVE: Vital Signs Date Time Temp Pulse Resp B/P Pulse Ox O2 Delivery O2 Flow Rate FiO2 11/16/16 11:55 98.9 94 16 140/83 92 11/16/16 08:00 98.4 90 20 124/74 94 11/16/16 04:30 97.8 88 17 119/66 94 11/16/16 00:39 98.3 92 18 115/68 95 11/15/16 20:21 98.6 84 18 139/93 96 11/15/16 20:03 90 11/15/16 16:13 16 11/15/16 16:00 98.8 77 18 133/77 96 11/15/16 11/15/16 11/16/16 15:00 23:00 07:00 Intake Total 840 ml 480 ml 360 ml Balance 840 ml 480 ml 360 ml Intake Oral 840 ml 480 ml 360 ml # Voids 6 3 4 # Bowel Movements 4 0 0 Laboratory Tests Test 11/16/16 11:32 White Blood Count 7.0 TH/MM3 Red Blood Count 3.38 MIL/MM3 Hemoglobin 9.1 GM/DL Hematocrit 27.7 % Mean Corpuscular Volume 82.1 FL Mean Corpuscular Hemoglobin 26.9 PG Mean Corpuscular Hemoglobin 32.8 % Concent Red Cell Distribution Width 16.3 % Platelet Count 222 TH/MM3 Mean Platelet Volume 8.5 FL Laboratory Tests Test 11/16/16 11:32 Sodium Level 136 MEQ/L Potassium Level 3.8 MEQ/L Chloride Level 104 MEQ/L Carbon Dioxide Level 23.2 MEQ/L Anion Gap 9 MEQ/L Blood Urea Nitrogen 6 MG/DL Creatinine 0.63 MG/DL Estimat Glomerular Filtration 112 ML/MIN Rate Random Glucose 86 MG/DL Calcium Level 8.1 MG/DL Microbiology Date/Time Procedure Status Source Growth 11/13/16 19:06 Aerobic Blood Culture - Final Complete Blood Peripheral Staphylococcus Aureus 11/13/16 19:06 Anaerobic Blood Culture - Final Complete Staphylococcus Aureus 11/13/16 19:10 Aerobic Blood Culture - Final Complete Blood Peripheral Staphylococcus Aureus 11/13/16 19:10 Anaerobic Blood Culture - Final Complete Staphylococcus Aureus IMAGING: CT Angiography 11/13/161953 Signed Impressions: Service Date/Time: Sunday, November 13, 2016 22:02 - CONCLUSION: 1. No pulmonary embolus. 2. Dense areas of consolidation the left lingula and left lower lobe with a mild left pleural effusion. There are minimal areas of consolidation or atelectasis at the right base and right middle lobe. 3. Nonspecific prominent lymph nodes in the mediastinum and hilar regions. 4. Emphysematous change. Raj Carrasco MD Chest X-Ray 11/13/161815 Signed Impressions: Service Date/Time: Sunday, November 13, 2016 18:30 - CONCLUSION: Left lower lobe consolidation. Some degree of effusion cannot be excluded. Raj Carrasco MD PHYSICAL EXAMINATION GENERAL: No acute distress. She is awake, alert and oriented. HEENT: Extraocular movements grossly intact, pupils reactive to light. No icterus. Oropharynx, no lesions. No thrush. Neck: Supple without adenopathy. The left neck has an area of firmness over the jugular vein area but no palpable cord. Lungs: Decreased breath sounds. Heart: 3/6 systolic murmur at the left sternal border. Abdomen: Bowel sounds present, soft, nontender. Extremities: No clubbing, cyanosis or edema. No splinter hemorrhages. No embolic lesions. Skin: No rash. Neuro: Nonfocal. Psych: Calm and cooperative. IMPRESSION 1. Bacteremia due to staph aureus MSSA in a patient who is an IV drug user. 2. Rule out endocarditis. 2D ECHO pending. 3. Pneumonia. The patient likely has embolic phenomenon from endocarditis. RECOMMENDATIONS 1. Continue oxacillin. 2. Follow 2-D echocardiogram. 3. Monitor clinical status. Keo Bynum MD Nov 16, 2016 14:59
--- NOTE | 2016-11-16 16:33 | ECHRPT ---
Indication: Severe sepsis without septic shock CONCLUSIONS Normal left ventricular size and wall thickness. The left ventricular systolic function is normal wi th an estimated ejection fraction in the range of 50-55%. Left ventricular diastolic function parameters a re normal. Atrial septal aneurysm is present (benign finding). Mild mitral valve regurgitation. Trace aortic valve regurgitation. There is trace tricuspid valve regurgitation. There is estimated [id number] pulmonary hypertension present (62 mmHg). There is a small pericardial effusion present. A moderate left sided pleural effusion is noted. No hemodynamically significant echocardiographic features were observed (no pre-tamponade physiology). BP: 127 / 73 HR: 97 Rhythm: Technical Quality: FINDINGS LEFT VENTRICLE Normal left ventricular size and wall thickness. The left ventricular systolic function is normal wi th an estimated ejection fraction in the range of 50-55%. Left ventricular diastolic function parameters a re normal. RIGHT VENTRICLE Normal right ventricular size and systolic function. LEFT ATRIUM The left atrial size is normal. RIGHT ATRIUM The right atrial size is normal. ATRIAL SEPTUM Atrial septal aneurysm is present (benign finding). No atrial level shunt is demonstrated by color flow Doppler interrogation. AORTA The aortic root and proximal ascending aorta are normal in size on limited imaging. MITRAL VALVE Mild mitral valve regurgitation. AORTIC VALVE Trace aortic valve regurgitation. TRICUSPID VALVE There is trace tricuspid valve regurgitation. There is estimated [id number] pulmonary hypertension present (62 mmHg). PULMONARY VALVE The pulmonary valve is not well visualized. VESSELS The inferior vena cava is normal in size. PERICARDIUM There is a small pericardial effusion present. A moderate left sided pleural effusion is noted. No hemodynamically significant echocardiographic features were observed (no pre-tamponade physiology). Jarred Tenorio MD, FACC (Electronically Signed) Final Date:16 November 2016 16:31
[2016-11-17] MEDS: OXACILLIN INJ 2 GM in SODIUM CHLORIDE 0.9% INJ 100 ML IV SCH ×6 (01:00→20:39)
[2016-11-17 03:07] VITALS: BP 123/77; PULSE 78; RESP 18; TEMP 98.5; O2SAT 96
[2016-11-17] MEDS: SODIUM CHLOR 0.9% 1000 ML INJ 1,000 ML IV SCH (06:00)
[2016-11-17 08:00] VITALS: BP 129/83; PULSE 83; RESP 18; TEMP 97.3; O2SAT 93
[2016-11-17] MEDS: SODIUM CHLORIDE 0.9% FLUSH 10 ML FLUSH IV FLUSH SCH ×2 (09:00→20:42)
[2016-11-17] MEDS: DOCUSATE SODIUM 50 MG/SENNA 8.6 MG TAB PO SCH ×2 (09:02→20:42)
--- NOTE | 2016-11-17 11:11 | HHI.PR ---
Subjective Remarks MAXIMUM TEMPERATURE 100.5 overnight. Patient lost IV access overnight and missed 2 doses of antibiotics. Today she reports she is feeling a little better. Breathing more comfortably. IV access obtained this morning. Objective Vitals Vital Signs Date Time Temp Pulse Resp B/P Pulse Ox O2 Delivery O2 Flow Rate FiO2 11/17/16 08:00 97.3 83 18 129/83 93 11/17/16 03:07 98.5 78 18 123/77 96 11/16/16 23:25 98.5 75 18 118/67 95 11/16/16 20:00 100.3 11/16/16 19:57 100.5 84 18 125/82 95 11/16/16 16:00 99.6 114 16 120/69 94 11/16/16 11:55 98.9 94 16 140/83 92 I/O 11/16/16 11/16/16 11/16/16 11/17/16 11/17/16 11/17/16 07:00 15:00 23:00 07:00 15:00 23:00 Intake Total 360 ml 2014 ml 360 ml 480 ml Balance 360 ml 2014 ml 360 ml 480 ml Intake Oral 360 ml 480 ml 360 ml 480 ml IV Total 1534 ml # Voids 4 4 4 3 # Bowel Movements 0 1 0 0 Result Diagram: 11/16/16 1132 11/16/16 1132 Objective Remarks GENERAL: Patient appears older than stated age. CARDIOVASCULAR: Normal rate and regular rhythm. There is a soft 2/6 CHRISTIANO murmur best heard in the tricuspid area. RESPIRATORY: Diminished breath sounds at the bases bilaterally, otherwise clear to auscultation bilaterally. GASTROINTESTINAL: Abdomen soft, non-tender, non-distended. Normal active bowel sounds MUSCULOSKELETAL: Extremities without cyanosis, or edema. NEURO: Alert & Oriented x4 to person, place, time, situation. Moves all ext x4 PSYCH: Appropriate mood and affect. A/P Problem List: (1) Sepsis ICD Code: A41.9 Status: Acute (2) PNA (pneumonia) ICD Code: J18.9 Status: Acute (3) IVDU (intravenous drug user) ICD Code: F19.90 Status: Acute (4) Tobacco abuse ICD Code: Z72.0 Status: Acute (5) Gram-positive cocci bacteremia ICD Code: R78.81 Status: Acute Assessment and Plan 31-year-old female with history of IV drug abuse admitted with sepsis. Patient found to have staph aureus bacteremia. Need to rule out bacterial endocarditis. Sepsis secondary to bacteremia: Need to rule out endocarditis Infectious disease following. Discontinue vancomycin and cefepime, patient was started on oxacillin. 2-D echocardiogram did not report any vegetation. Reports pulmonary hypertension and trace tricuspid valve regurgitation. Repeat blood cultures pending. PNA: Chest CT shows multiple areas of consolidation LLL, Left lingula, RML, RLL. Could be septic emboli. - Antibiotics as above. Infectious diseases following supportive care with supplemental oxygen as needed Incentive spirometer ordered. Back pain: Careful with pain medication given her history. Would avoid IV narcotics. Continue oxycodone. Toradol IV as needed for breakthrough pain. IVDU: Patient reports she has been using IV Dilaudid intermittently for the past month. Most recently she can recall was a couple of weeks ago, then the day prior to admission. - Patient thoroughly counseled on the detrimental effects of IV drugs on her health. She expressed desire to quit. Tobacco Abuse: Pt counselled. Ativan/NicoDerm prn if needed. DVT Prophylaxis: SCD/Teds. Discharge Planning Continue inpatient care. Sammy Berkowitz MD Nov 17, 2016 11:11
[2016-11-17 12:00] VITALS: BP 123/77; PULSE 78; RESP 18; TEMP 98.8; O2SAT 94
[2016-11-17 16:00] VITALS: BP 125/78; PULSE 78; RESP 18; TEMP 99.2; O2SAT 94
[2016-11-17 19:46] VITALS: PULSE 89
[2016-11-17 20:00] VITALS: BP 149/75; PULSE 83; RESP 20; TEMP 98.9; O2SAT 98
[2016-11-18] VITALS (10 sets, daily range): BP systolic 106–136; BP diastolic 60–84; PULSE 72–88; RESP 16–22; TEMP 98.5–99.8; O2SAT 93–96
[2016-11-18] MEDS: OXACILLIN INJ 2 GM in SODIUM CHLORIDE 0.9% INJ 100 ML IV SCH ×7 (00:53→21:50)
[2016-11-18] MEDS: DOCUSATE SODIUM 50 MG/SENNA 8.6 MG TAB PO SCH ×2 (08:50→21:00)
[2016-11-18] MEDS: SODIUM CHLORIDE 0.9% FLUSH 10 ML FLUSH IV FLUSH SCH ×2 (08:51→21:00)
--- NOTE | 2016-11-18 11:44 | HHI.PR ---
Subjective Remarks Patient has no new complaints. Inquiring about how long she will need to be on antibiotics. Objective Vitals Vital Signs Date Time Temp Pulse Resp B/P Pulse Ox O2 Delivery O2 Flow Rate FiO2 11/18/16 09:00 74 11/18/16 08:00 98.6 79 16 130/84 93 11/18/16 04:00 99.8 83 18 106/60 95 11/18/16 03:59 72 11/18/16 00:03 75 11/18/16 00:00 99.8 81 22 117/65 96 11/17/16 20:00 98.9 83 20 149/75 98 11/17/16 19:46 89 11/17/16 16:00 99.2 78 18 125/78 94 11/17/16 12:00 98.8 78 18 123/77 94 I/O 11/17/16 11/17/16 11/17/16 11/18/16 11/18/16 11/18/16 07:00 15:00 23:00 07:00 15:00 23:00 Intake Total 480 ml 600 ml 895 ml 630 ml Balance 480 ml 600 ml 895 ml 630 ml Intake Oral 480 ml 600 ml 780 ml 400 ml IV Total 115 ml 230 ml # Voids 3 4 2 2 # Bowel Movements 0 0 1 0 Result Diagram: 11/16/16 1132 11/16/16 1132 Objective Remarks GENERAL: Patient appears older than stated age. CARDIOVASCULAR: Normal rate and regular rhythm. There is a soft 2/6 CHRISTIANO murmur best heard in the tricuspid area. RESPIRATORY: Diminished breath sounds at the bases bilaterally, otherwise clear to auscultation bilaterally. GASTROINTESTINAL: Abdomen soft, non-tender, non-distended. Normal active bowel sounds MUSCULOSKELETAL: Extremities without cyanosis, or edema. NEURO: Alert & Oriented x4 to person, place, time, situation. Moves all ext x4 PSYCH: Appropriate mood and affect. A/P Problem List: (1) Sepsis ICD Code: A41.9 Status: Acute (2) PNA (pneumonia) ICD Code: J18.9 Status: Acute (3) IVDU (intravenous drug user) ICD Code: F19.90 Status: Acute (4) Tobacco abuse ICD Code: Z72.0 Status: Acute (5) Gram-positive cocci bacteremia ICD Code: R78.81 Status: Acute Assessment and Plan 31-year-old female with history of IV drug abuse admitted with sepsis. Patient found to have staph aureus bacteremia. Need to rule out bacterial endocarditis. Sepsis secondary to bacteremia: Need to rule out endocarditis Infectious disease following. Discontinue vancomycin and cefepime, patient was started on oxacillin. 2-D echocardiogram did not report any vegetation. Reports pulmonary hypertension and trace tricuspid valve regurgitation. Repeat blood cultures with one out of 4 bottles growing gram-positive cocci.? Contaminant. Discussed with ID. Continue to monitor. PNA: Chest CT shows multiple areas of consolidation LLL, Left lingula, RML, RLL. Could be septic emboli. - Antibiotics as above. Infectious diseases following supportive care with supplemental oxygen as needed Incentive spirometer ordered. Back pain: Careful with pain medication given her history. Would avoid IV narcotics. Downgrade pain medication to ibuprofen and Lortab for breakthrough only. IVDU: Patient reports she has been using IV Dilaudid intermittently for the past month. Most recently she can recall was a couple of weeks ago, then the day prior to admission. - Patient thoroughly counseled on the detrimental effects of IV drugs on her health. She expressed desire to quit. Tobacco Abuse: Pt counselled. Ativan/NicoDerm prn if needed. DVT Prophylaxis: SCD/Teds. Discharge Planning Continue inpatient care. Sammy Berkowitz MD Nov 18, 2016 11:44
[2016-11-18] MEDS ORDERED: IBUPROFEN 800 MG TAB PO PRN (12:15)
[2016-11-18] MEDS: ACETAMINOPHEN/HYDROcodone 325 MG/5 MG TAB PO PRN ×2 (13:23→21:49)
[2016-11-19] VITALS (12 sets, daily range): BP systolic 103–129; BP diastolic 56–80; PULSE 65–108; RESP 16–18; TEMP 97.2–99.6; O2SAT 90–97
[2016-11-19] MEDS: OXACILLIN INJ 2 GM in SODIUM CHLORIDE 0.9% INJ 100 ML IV SCH ×6 (00:19→21:23)
[2016-11-19] MEDS: ACETAMINOPHEN/HYDROcodone 325 MG/5 MG TAB PO PRN ×4 (03:52→21:24)
[2016-11-19] MEDS: DOCUSATE SODIUM 50 MG/SENNA 8.6 MG TAB PO SCH ×2 (09:00→21:26)
[2016-11-19] MEDS: SODIUM CHLORIDE 0.9% FLUSH 10 ML FLUSH IV FLUSH SCH ×2 (09:00→21:23)
--- NOTE | 2016-11-19 11:21 | HHI.PR ---
Subjective Remarks Patient inquired about why her pain medication is being weaned down, she expressed concern about withdrawals. It was explained to her we will continue to wean down opiates until discontinued. No other issues. No SOB or chest pain. Objective Vitals Vital Signs Date Time Temp Pulse Resp B/P Pulse Ox O2 Delivery O2 Flow Rate FiO2 11/19/16 08:34 65 11/19/16 08:00 98.4 75 17 103/56 93 11/19/16 06:39 70 11/19/16 04:45 18 11/19/16 04:43 84 11/19/16 04:25 99.6 87 16 118/58 95 11/19/16 00:33 108 11/19/16 00:09 98.6 91 16 105/57 95 11/18/16 21:30 78 11/18/16 20:30 Room Air 11/18/16 20:20 99.2 88 16 117/70 96 11/18/16 16:00 98.5 86 16 118/72 94 11/18/16 12:00 98.6 79 16 136/76 95 I/O 11/18/16 11/18/16 11/18/16 11/19/16 11/19/16 11/19/16 07:00 15:00 23:00 07:00 15:00 23:00 Intake Total 630 ml 600 ml 360 ml 240 ml Balance 630 ml 600 ml 360 ml 240 ml Intake Oral 400 ml 600 ml 360 ml 240 ml IV Total 230 ml # Voids 2 4 2 2 # Bowel Movements 0 1 0 0 Result Diagram: 11/16/16 1132 11/16/16 1132 Objective Remarks GENERAL: Patient appears older than stated age. CARDIOVASCULAR: Normal rate and regular rhythm. There is a soft 2/6 CHRISTIANO murmur best heard in the tricuspid area. RESPIRATORY: Diminished breath sounds at the bases bilaterally, otherwise clear to auscultation bilaterally. GASTROINTESTINAL: Abdomen soft, non-tender, non-distended. Normal active bowel sounds MUSCULOSKELETAL: Extremities without cyanosis, or edema. NEURO: Alert & Oriented x4 to person, place, time, situation. Moves all ext x4 PSYCH: Appropriate mood and affect. A/P Problem List: (1) Sepsis ICD Code: A41.9 Status: Acute (2) PNA (pneumonia) ICD Code: J18.9 Status: Acute (3) IVDU (intravenous drug user) ICD Code: F19.90 Status: Acute (4) Tobacco abuse ICD Code: Z72.0 Status: Acute (5) Gram-positive cocci bacteremia ICD Code: R78.81 Status: Acute Assessment and Plan 31-year-old female with history of IV drug abuse admitted with sepsis. Patient found to have staph aureus bacteremia. Need to rule out bacterial endocarditis. Sepsis secondary to bacteremia: Need to rule out endocarditis Infectious disease following. Discontinue vancomycin and cefepime, patient was started on oxacillin. 2-D echocardiogram did not report any vegetation. Reports pulmonary hypertension and trace tricuspid valve regurgitation. Repeat blood cultures with one out of 4 bottles growing staph. Continue to monitor. PNA: Chest CT shows multiple areas of consolidation LLL, Left lingula, RML, RLL. Could be septic emboli. - Antibiotics as above. Infectious diseases following supportive care with supplemental oxygen as needed Incentive spirometer ordered. Back pain: Careful with pain medication given her history. Would avoid IV narcotics. Downgraded pain medication to ibuprofen and Lortab for breakthrough only. IVDU: Patient reports she has been using IV Dilaudid intermittently for the past month. Most recently she can recall was a couple of weeks ago, then the day prior to admission. - Patient thoroughly counseled on the detrimental effects of IV drugs on her health. She expressed desire to quit. Tobacco Abuse: Pt counselled. Ativan/NicoDerm prn if needed. DVT Prophylaxis: SCD/Teds. Discharge Planning Continue inpatient care. Sammy Berkowitz MD Nov 19, 2016 11:21
[2016-11-19] MEDS: SODIUM CHLORIDE 0.9% FLUSH 10 ML FLUSH IV FLUSH PRN ×2 (11:56→15:23)
--- NOTE | 2016-11-19 16:26 | HHI.IDPN ---
Note Infectious Disease Note Patient still has left pleuritic chest pain. Notes she is coughing up brown tinged sputum. Notes night sweats. Afebrile. Blood culture 05/18 bottles has staph aureus. Blood culture 08/16 bottles - staph aureus. This is a 31-year-old white female who does IV drugs. The patient presented to the emergency department with fever or chills, and chest pain. She notes that the chest pain was getting worse when she would lay flat and she presented to the emergency department with severe chest pain with shortness of breath and also pain in the upper back. PAST MEDICAL HISTORY: Asthma. Tobacco abuse. IV drug abuse. History of back surgery. ALLERGIES NO KNOWN DRUG ALLERGIES. MEDICATIONS Oxacillin. SOCIAL HISTORY The patient smokes about a half to one pack of cigarettes a day. Denies alcohol use. Positive IV drug use. FAMILY HISTORY Noncontributory. OBJECTIVE: Vital Signs Date Time Temp Pulse Resp B/P Pulse Ox O2 Delivery O2 Flow Rate FiO2 11/19/16 12:00 98.9 70 17 129/80 97 11/19/16 08:34 65 11/19/16 08:00 98.4 75 17 103/56 93 11/19/16 06:39 70 11/19/16 04:45 18 11/19/16 04:43 84 11/19/16 04:25 99.6 87 16 118/58 95 11/19/16 00:33 108 11/19/16 00:09 98.6 91 16 105/57 95 11/18/16 21:30 78 11/18/16 20:30 Room Air 11/18/16 20:20 99.2 88 16 117/70 96 11/18/16 11/18/16 11/19/16 15:00 23:00 07:00 Intake Total 600 ml 360 ml 240 ml Balance 600 ml 360 ml 240 ml Intake Oral 600 ml 360 ml 240 ml # Voids 4 2 2 # Bowel Movements 1 0 0 Microbiology Date/Time Procedure Status Source Growth 11/16/16 18:36 Aerobic Blood Culture - Final Resulted Blood Peripheral Staphylococcus Aureus 11/16/16 18:36 Anaerobic Blood Culture - Preliminary Resulted Blood Peripheral NO GROWTH IN 3 DAYS 11/16/16 18:43 Aerobic Blood Culture - Preliminary Resulted Blood Peripheral NO GROWTH IN 3 DAYS 11/16/16 18:43 Anaerobic Blood Culture - Preliminary Resulted Blood Peripheral NO GROWTH IN 3 DAYS IMAGING: CT Angiography 11/13/161953 Signed Impressions: Service Date/Time: Sunday, November 13, 2016 22:02 - CONCLUSION: 1. No pulmonary embolus. 2. Dense areas of consolidation the left lingula and left lower lobe with a mild left pleural effusion. There are minimal areas of consolidation or atelectasis at the right base and right middle lobe. 3. Nonspecific prominent lymph nodes in the mediastinum and hilar regions. 4. Emphysematous change. Raj Carrasco MD Chest X-Ray 11/13/161815 Signed Impressions: Service Date/Time: Sunday, November 13, 2016 18:30 - CONCLUSION: Left lower lobe consolidation. Some degree of effusion cannot be excluded. Raj Carrasco MD PHYSICAL EXAMINATION GENERAL: No acute distress. awake, alert and oriented. HEENT: No icterus. Oropharynx, no lesions. No thrush. Neck: Supple without adenopathy. The left neck has an area of firmness over the jugular vein area but no palpable cord. Lungs: Decreased breath sounds. Heart: 3/6 systolic murmur at the left sternal border. Abdomen: Bowel sounds present, soft, nontender. Extremities: No clubbing, cyanosis or edema. No splinter hemorrhages. No embolic lesions. Skin: No rash. Neuro: Nonfocal. Psych: Calm and cooperative. IMPRESSION 1. Bacteremia due to staph aureus MSSA in a patient who is an IV drug user. 2. Pneumonia. The patient likely has embolic phenomenon from endocarditis. 3. RECOMMENDATIONS 1. Continue Oxacillin. 2. Repeat the blood cultures. 3. VICTORINA to evaluate for endocarditis. 4. Monitor clinical status. Keo Bynum MD Nov 19, 2016 16:26
[2016-11-19 18:08] LABS: HEMATOCRIT 31.5 % (35.0-46.0); MEAN CELL VOLUME 82.8 FL (80.0-100.0); MEAN CORPUSCULAR HEMOGLOBIN 26.3 PG (27.0-34.0); MEAN CORPUSCULAR HGB CONC 31.8 % (32.0-36.0); PLATELET COUNT 337 TH/MM3 (150-450); RED CELL DISTRIBUTION WIDTH 16.4 % (11.6-17.2); REVIEW FLAG FINAL; WHITE BLOOD COUNT 8.6 TH/MM3 (4.0-11.0)
[2016-11-20] VITALS (7 sets, daily range): BP systolic 108–138; BP diastolic 54–88; PULSE 71–110; RESP 16–18; TEMP 97.7–99.8; O2SAT 93–97
[2016-11-20] MEDS: OXACILLIN INJ 2 GM in SODIUM CHLORIDE 0.9% INJ 100 ML IV SCH ×6 (01:15→21:16)
[2016-11-20] MEDS: ACETAMINOPHEN/HYDROcodone 325 MG/5 MG TAB PO PRN ×4 (03:00→22:10)
[2016-11-20] MEDS: DOCUSATE SODIUM 50 MG/SENNA 8.6 MG TAB PO SCH ×2 (07:53→21:16)
[2016-11-20] MEDS: SODIUM CHLORIDE 0.9% FLUSH 10 ML FLUSH IV FLUSH SCH ×2 (07:54→21:16)
--- NOTE | 2016-11-20 11:42 | HHI.PR ---
Subjective Remarks Tmax 99.8 Patient reports she is feeling okay. No shortness of breath or chest pain. Inquired about when she will be able to go home. Objective Vitals Vital Signs Date Time Temp Pulse Resp B/P Pulse Ox O2 Delivery O2 Flow Rate FiO2 11/20/16 08:05 76 11/20/16 08:00 Blow By 11/20/16 08:00 97.7 85 16 108/54 93 11/20/16 04:04 99.4 98 16 111/58 94 11/20/16 00:30 99.8 109 16 118/83 94 11/19/16 20:25 98.5 97 16 115/76 94 11/19/16 20:00 94 Room Air 11/19/16 20:00 89 11/19/16 17:55 95 Room Air 11/19/16 17:38 86 11/19/16 16:00 97.2 82 18 113/73 90 11/19/16 12:00 98.9 70 17 129/80 97 I/O 11/19/16 11/19/16 11/19/16 11/20/16 11/20/16 11/20/16 07:00 15:00 23:00 07:00 15:00 23:00 Intake Total 240 ml 1103 ml 567 ml 340 ml Balance 240 ml 1103 ml 567 ml 340 ml Intake Oral 240 ml 1000 ml 240 ml 120 ml IV Total 103 ml 327 ml 220 ml # Voids 2 4 2 2 # Bowel Movements 0 1 0 0 Result Diagram: 11/19/16 1736 11/16/16 1132 Objective Remarks GENERAL: Patient appears older than stated age. CARDIOVASCULAR: Normal rate and regular rhythm. There is a soft 2/6 CHRISTIANO murmur best heard in the tricuspid area. RESPIRATORY: Diminished breath sounds at the bases bilaterally, otherwise clear to auscultation bilaterally. GASTROINTESTINAL: Abdomen soft, non-tender, non-distended. Normal active bowel sounds MUSCULOSKELETAL: Extremities without cyanosis, or edema. NEURO: Alert & Oriented x4 to person, place, time, situation. Moves all ext x4 PSYCH: Appropriate mood and affect. A/P Problem List: (1) Sepsis ICD Code: A41.9 Status: Acute (2) PNA (pneumonia) ICD Code: J18.9 Status: Acute (3) IVDU (intravenous drug user) ICD Code: F19.90 Status: Acute (4) Tobacco abuse ICD Code: Z72.0 Status: Acute (5) Gram-positive cocci bacteremia ICD Code: R78.81 Status: Acute Assessment and Plan 31-year-old female with history of IV drug abuse admitted with sepsis. Patient found to have staph aureus bacteremia. Need to rule out bacterial endocarditis. Sepsis secondary to bacteremia: Need to rule out endocarditis Infectious disease following. Discontinue vancomycin and cefepime, patient was started on oxacillin. 2-D echocardiogram did not report any vegetation. Reports pulmonary hypertension and trace tricuspid valve regurgitation. Repeat blood cultures with one out of 4 bottles growing staph. Agree with ID recs, consult Cardiology for VICTORINA - Repeat blood cultures. PNA: Chest CT shows multiple areas of consolidation LLL, Left lingula, RML, RLL. Could be septic emboli. - Antibiotics as above. Infectious diseases following supportive care with supplemental oxygen as needed Incentive spirometer ordered. Back pain: Careful with pain medication given her history. Would avoid IV narcotics. Downgraded pain medication to ibuprofen and Lortab for breakthrough only. Patient advised she will be weaned off all Narcotics by the time of discharge. IVDU: Patient reports she has been using IV Dilaudid intermittently for the past month. Most recently she can recall was a couple of weeks ago, then the day prior to admission. - Patient thoroughly counseled on the detrimental effects of IV drugs on her health. She expressed desire to quit. Tobacco Abuse: Pt counselled. Ativan/NicoDerm prn if needed. DVT Prophylaxis: SCD/Teds. Discharge Planning Continue inpatient care. Bacteremia with possible endocarditis. Continue workup and treatment Sammy Berkowitz MD Nov 20, 2016 11:42
--- NOTE | 2016-11-20 16:03 | MB ---
cc: EHSAN MARMOLEJO MD DATE OF CONSULTATION: 11/20/2016. REASON FOR CONSULTATION: Transesophageal echocardiogram. HISTORY OF PRESENT ILLNESS: The patient is a pleasant 31-year-old woman who has used IV drugs and presented with signs of sepsis. She has had several blood cultures growing Staph aureus, and I have been asked to perform a transesophageal echocardiogram to exclude endocarditis. The patient denies any cardiac symptoms or cardiac history. She has no chest pain, shortness of breath, lightheadedness or dizziness. PAST MEDICAL HISTORY: 1. IV drug use. 2. Tobacco abuse. 3. Asthma. CURRENT MEDICATIONS: Oxacillin. ALLERGIES: NO KNOWN DRUG ALLERGIES. PHYSICAL EXAMINATION: VITAL SIGNS: Afebrile, pulse 79, respiratory rate 16, blood pressure 120/67, satting 94% on room air. GENERAL: A pleasant young woman in no distress. NECK: No JVD. LUNGS: Clear auscultation bilaterally. CARDIOVASCULAR: Regular rate rhythm. No murmurs appreciated. ABDOMEN: Benign. EXTREMITIES: No edema. LABORATORY DATA: White count 8.6, down from 14, hematocrit 31.5, platelets 337. Sodium 136, potassium 3.8, chloride 104, bicarb 23.2, BUN 6, creatinine 0.63, glucose 86. Cardiac enzymes are negative x1. Echocardiogram showed a pleural effusion and a small pericardial effusion with elevated pulmonary pressures but no comment regarding vegetation was made. IMPRESSION: 1. Sepsis. This very pleasant IV drug user presents with sepsis and thus requires a transesophageal echocardiogram to exclude endocarditis given that she has had multiple cultures showing Staph aureus. I discussed the risks and benefits with the patient and she agrees to proceed and this will be planned for tomorrow and she will have nothing to eat after midnight. Further recommendations will be based on her transesophageal echocardiogram tomorrow. Thank you again for the opportunity to participate in this patient's care. MD MARIPOSA Sneed/LAURENT /3:13 PM /4:04 PM
[2016-11-21 00:02] VITALS: BP 138/88; PULSE 107; RESP 17; TEMP 99.1; O2SAT 95
[2016-11-21] MEDS: OXACILLIN INJ 2 GM in SODIUM CHLORIDE 0.9% INJ 100 ML IV SCH ×3 (00:59→09:43)
[2016-11-21] MEDS: ACETAMINOPHEN/HYDROcodone 325 MG/5 MG TAB PO PRN (03:57)
[2016-11-21 04:00] VITALS: BP 119/71; PULSE 98; RESP 18; TEMP 99.2; O2SAT 95
[2016-11-21 07:20] VITALS: BP 102/63; PULSE 66; RESP 16; TEMP 97.9; O2SAT 95
[2016-11-21] MEDS: DOCUSATE SODIUM 50 MG/SENNA 8.6 MG TAB PO SCH ×2 (09:00→09:42)
--- NOTE | 2016-11-21 09:07 | PD.CARD.PN ---
Subjective Subjective Remarks No events; patient tolerated VICTORINA well (which was negative for endocarditis.) Objective Medications Administered Medications Medications (Trade) Dose Ordered Sig/Ambreen Route PRN Reason Start Time Stop Time Status Last Admin Dose Admin Sodium Chloride (NS Flush) 2 ml UNSCH PRN IV FLUSH FLUSH AFTER USING IV ACCESS 11/13/16 22:00 11/19/16 15:23 Sodium Chloride (NS Flush) 2 ml BID IV FLUSH 11/14/16 09:00 11/20/16 21:16 Senna/Docusate Sodium 1 tab 1 tab BID PO 11/14/16 09:00 11/20/16 21:16 Oxacillin Sodium/ Sodium Chloride (Prostaphlin Inj/ NS Inj) 100 ml @ 200 mls/hr Q4H IV 11/14/16 17:00 11/21/16 05:05 Acetaminophen/ Hydrocodone Bitart (Leon 5-325 Mg) 1 tab Q6H PRN PO BREAKTHROUGH PAIN 11/18/16 12:15 11/21/16 03:57 Vital Signs / I&O Vital Signs Date Time Temp Pulse Resp B/P Pulse Ox O2 Delivery O2 Flow Rate FiO2 11/21/16 07:20 97.9 66 16 102/63 95 11/21/16 04:00 99.2 98 18 119/71 95 11/21/16 00:02 99.1 107 17 138/88 95 11/21/16 00:02 107 11/20/16 20:00 110 11/20/16 20:00 98.0 96 17 138/83 97 11/20/16 15:56 98.0 71 18 132/88 96 11/20/16 12:09 98.2 79 16 120/67 94 I/O 11/20/16 11/20/16 11/20/16 11/21/16 11/21/16 11/21/16 07:00 15:00 23:00 07:00 15:00 23:00 Intake Total 340 ml 600 ml 1069 ml 249 ml Balance 340 ml 600 ml 1069 ml 249 ml Intake Oral 120 ml 600 ml 480 ml IV Total 220 ml 589 ml 249 ml # Voids 2 3 2 2 # Bowel Movements 0 0 0 0 Physical Exam GENERAL: This is a well-nourished, well-developed patient, in no apparent distress. CARDIOVASCULAR: Regular rate and rhythm without murmurs, gallops, or rubs. RESPIRATORY: Clear to auscultation. Breath sounds equal bilaterally. No wheezes , rales, or rhonchi. GASTROINTESTINAL: Abdomen soft, non-tender, nondistended. Normal active bowel sounds MUSCULOSKELETAL: Extremities without clubbing, cyanosis, or edema. NEURO: Alert & Oriented x4 to person, place, time, situation. Moves all ext x4 Imaging Last Impressions CT Angiography 11/13/161953 Signed Impressions: Service Date/Time: Sunday, November 13, 2016 22:02 - CONCLUSION: 1. No pulmonary embolus. 2. Dense areas of consolidation the left lingula and left lower lobe with a mild left pleural effusion. There are minimal areas of consolidation or atelectasis at the right base and right middle lobe. 3. Nonspecific prominent lymph nodes in the mediastinum and hilar regions. 4. Emphysematous change. Raj Carrasco MD Chest X-Ray 11/13/161815 Signed Impressions: Service Date/Time: Sunday, November 13, 2016 18:30 - CONCLUSION: Left lower lobe consolidation. Some degree of effusion cannot be excluded. Raj Carrasco MD Assessment and Plan Problem List: (1) Gram-positive cocci bacteremia Assessment and Plan: VICTORINA negative for vegetation (full report to follow.) (2) Sepsis Assessment and Plan Negative VICTORINA for endocarditis; will sign off at this time, please call with questions. Problem Qualifiers (1) Sepsis: Qualified Code: A41.01 - Sepsis due to methicillin susceptible Staphylococcus aureus Jonathan Aguayo MD Nov 21, 2016 09:07
--- NOTE | 2016-11-21 09:18 | ECHRPT ---
Indication: CONCLUSIONS Normal LV function, no evidence for vegetation There is a small pericardial effusion present; no hemodynamic compromise. BP: / HR: Rhythm: Technical Quality:Fair; artifact present Medications Complications Proc. Components FINDINGS LEFT VENTRICLE Normal left ventricular size and wall thickness. The left ventricular systolic function is normal wi th an estimated ejection fraction in the range of 60-65%. RIGHT VENTRICLE Normal right ventricular size and systolic function. LEFT ATRIUM The left atrial size is normal. RIGHT ATRIUM The right atrial size is normal. ATRIAL SEPTUM Atrial septal aneurysm is present (benign finding). No atrial level shunt is observed with agitated saline contrast administration. AORTA The aortic root and proximal ascending aorta are normal in size on limited imaging. MITRAL VALVE Structurally normal mitral valve. Trace mitral valve regurgitation. AORTIC VALVE Trileaflet aortic valve. No aortic valve stenosis or regurgitation. TRICUSPID VALVE Trivial pulmonary valve regurgitation. VESSELS The inferior vena cava is normal in size. PULMONARY VALVE The pulmonary valve is not well visualized. PERICADIUM There is a small pericardial effusion present; no hemodynamic compromise. Jonathan Aguayo MD (Electronically Signed) Final Date:21 November 2016 09:16
[2016-11-21] MEDS: SODIUM CHLORIDE 0.9% FLUSH 10 ML FLUSH IV FLUSH SCH (09:43)
--- NOTE | 2016-11-21 17:37 | PD.AMA ---
Against Medical Advice Note Diagnosis: (1) Gram-positive cocci bacteremia (2) Sepsis (3) Tobacco abuse (4) Pneumonia (5) Tachycardia (6) Leukocytosis (7) IVDU (intravenous drug user) Discharge Disposition: Against Medical Advice Pt Condition on Discharge: Guarded Recommended Treatment Course The pt left the hospital AMA before I had a chance to see or evaluate her. AMA Statement Patient Supriya Hernandez has decided to leave the hospital against medical advice. This patient has the capacity to refuse care and understands the risks of leaving, including permanent disability and/or , and has had an opportunity to ask questions about her condition. The patient has been informed that she may return for care at any time, and follow up has been arranged/ advised. Ruperto Azevedo DO Nov 21, 2016 17:37
== END 2016-11-21 10:40 | disposition left against medical advice (07) | DRG 871 ==
LOC: NEPE 17:47 → NEDA 21:47 → N06B 11-14 00:11
PROVIDERS: ADMIT Hospitalist; ATTEND Hospitalist
DX: A41.01 Sepsis due to Methicillin susceptible Staphylococcus aureus (principal); J18.9 Pneumonia, unspecified organism; F17.210 Nicotine dependence, cigarettes, uncomplicated; J45.909 Unspecified asthma, uncomplicated; F11.10 Opioid abuse, uncomplicated
CPT/HCPCS: 71010; 71275; 76937; 80048; 80053; 81001; 83605; 84484; 84703; 85025; 85027; 86403; 87040; 87149; 87186; 87205; 93005; 93306; 93312; 93320; 93325; 94150; 96361; 96365; 96375; J0692; J1885; J2700; J3370; J7030; J7050; Q9967